=== PATIENT | female | born 1980 | race Caucasian/White ===

== ENCOUNTER 2016-11-14 05:56 | Inpatient (IN) | payer OTHER ==
[2016-11-14] VITALS (36 sets, daily range): BP systolic 93–139; BP diastolic 49–108; PULSE 61–100; RESP 16–20; TEMP 97.6–98.2
[2016-11-14] MEDS ORDERED: AMPICILLIN 2 GM/NS 100 ML IV ONE ×2 (06:00)
[2016-11-14] MEDS ORDERED: OXYTOCIN 30 UNITS/NS 500ML PREMIX IV SCH (06:15)
[2016-11-14] MEDS ORDERED: MINERAL OIL 10 ML VIAL TOP PRN (06:30)
[2016-11-14] MEDS ORDERED: OXYTOCIN 30 UNITS 500ML PREMIX IV ONE (06:30)
[2016-11-14] MEDS ORDERED: LIDOCAINE HCL 1% 50 ML VIAL INFIL PRN (06:30)
[2016-11-14] MEDS ORDERED: LACTATED RINGER'S 1000 ML BOLUS IV PRN (06:30)
[2016-11-14] MEDS ORDERED: NS 1000 ML IV PRN (06:30)
[2016-11-14] MEDS ORDERED: CITRIC ACID-SODIUM CITRATE LIQ 30 ML UDC PO SCH (06:30)
[2016-11-14] MEDS ORDERED: NS 500 ML BOLUS IV PRN (06:30)
[2016-11-14] MEDS ORDERED: LIDOCAINE HCL 1% 50 ML VIAL I-DERMAL PRN (06:30)
[2016-11-14 06:45] LABS: AUTOMATED NEUTROPHIL # 4.9 TH/MM3 (1.8-7.7); BASOPHIL % 0.6 % (0.0-2.0); EOSINOPHIL % 0.7 % (0.0-4.0); HEMATOCRIT 35.9 % (35.0-46.0); HEMO FLAGS DIFF FINAL; LYMPH % 22.2 % (9.0-44.0); LYMPHOCYTE # 1.6 TH/MM3 (1.0-4.8); MEAN CELL VOLUME 90.1 FL (80.0-100.0); MEAN CORPUSCULAR HEMOGLOBIN 31.3 PG (27.0-34.0); MEAN CORPUSCULAR HGB CONC 34.7 % (32.0-36.0); MONO % 8.3 % (0.0-8.0); NEUT % 68.2 % (16.0-70.0); PLATELET COUNT 135 TH/MM3 (150-450); RED BLOOD COUNT 3.98 MIL/MM3 (4.00-5.30); RED CELL DISTRIBUTION WIDTH 12.7 % (11.6-17.2); WHITE BLOOD COUNT 7.1 TH/MM3 (4.0-11.0)
[2016-11-14] MEDS: LACTATED RINGER'S 1000 ML IV SCH (08:00)
[2016-11-14 08:24] LABS: BACTERIA, URINE MOD /hpf; BLOOD, URINE NEG (NEG); COMMENT (UR) CULTURE INDICATED; CULTURE IF INDICATED CULTURE INDICATED; GLUCOSE,URINE NEG (NEG); KETONE, URINE NEG (NEG); MUCUS URINE FEW /lpf (OCC); NITRITE,URINE NEG (NEG); PH, URINE 6.5 (5.0-8.5); SQUAMOUS EPITHELIAL CELL URINE 3 /hpf (0-5); URINE COLOR YELLOW (YELLW/STRAW)
[2016-11-14] MEDS ORDERED: fentaNYL 2MCG-BUPIV 0.125% INJ 100 ML ONE (08:58)
[2016-11-14] MEDS ORDERED: ePHEDrine/NS 50 MG/5 ML SYR ONE (09:15)
[2016-11-14] MEDS ORDERED: fentaNYL 2MCG-BUPIV 0.125% INJ 100 ML EPIDURAL SCH (10:45)
[2016-11-14] MEDS ORDERED: NO SYSTEM NARCOTICS XX PRN (10:45)
[2016-11-14] MEDS ORDERED: ePHEDrine/NS 50 MG/5 ML SYR IV PRN (10:45)
[2016-11-14] MEDS ORDERED: DO NOT ADMINISTER ANTICOAGULANTS XX PRN (10:45)
[2016-11-14] MEDS: AMPICILLIN 1 GM/NS 100 ML IV SCH ×4 (11:54→14:00)
[2016-11-14] MEDS ORDERED: oxyCODONE/ACETAMINOPHEN 5 MG/325 MG TAB PO PRN ×2 (13:30)
[2016-11-14] MEDS ORDERED: ACETAMINOPHEN 325 MG TAB PO PRN (13:30)
[2016-11-14] MEDS ORDERED: ZOLPIDEM TARTRATE 5 MG TAB PO PRN (13:30)
[2016-11-14] MEDS ORDERED: IBUPROFEN 600 MG TAB PO PRN (13:30)
[2016-11-14] MEDS ORDERED: BENZOCAINE 20% TOPICAL SPRAY 60 ML CAN TOPICAL PRN (13:30)
[2016-11-14] MEDS ORDERED: SODIUM CHLORIDE 0.9% FLUSH 5 ML FLUSH IV PRN (13:30)
[2016-11-14] MEDS ORDERED: WITCH HAZEL 50%/GLYCERIN 12.5% 40 PAD JAR TOPICAL PRN (13:30)
[2016-11-14] MEDS ORDERED: ALUMINUM/MAGNESIUM/SIMETH 30 ML CUP PO PRN (13:30)
[2016-11-14] MEDS ORDERED: ONDANSETRON ODT 4 MG TAB PO PRN (13:30)
[2016-11-14] MEDS ORDERED: DOCUSATE SODIUM 50 MG/SENNA 8.6 MG TAB PO PRN (13:30)
[2016-11-14] MEDS ORDERED: DIPHTH/TETANUS/ACEL PERTUSSIS (BOOSTER) 0.5 ML VIAL/PFS IM ONE (16:00)
[2016-11-14] MEDS ORDERED: MEASLES, MUMPS, RUBELLA VACCINE 0.5 ML VIAL SQ ONE (16:00)
[2016-11-14] MEDS: SODIUM CHLORIDE 0.9% FLUSH 5 ML FLUSH IV SCH (21:00)
[2016-11-15] MEDS: LACTATED RINGER'S 1000 ML IV SCH (06:30)
[2016-11-15 09:50] VITALS: BP 120/71; PULSE 68; RESP 20; TEMP 97.9
[2016-11-15] MEDS ORDERED: INFLUENZA VIRUS VACCINE (QUADRIVALENT) 0.5 ML SYR IM ONE (10:00)
--- NOTE | 2016-11-15 10:36 | HHI.OB ---
Subjective Post Day: 1 Remarks doing well Objective Vitals/I&O Vital Signs Date Time Temp Pulse Resp B/P Pulse Ox O2 Delivery O2 Flow Rate FiO2 11/14/16 14:01 85 125/108 11/14/16 13:50 18 11/14/16 13:46 61 115/72 11/14/16 13:33 97.6 18 11/14/16 13:29 66 124/75 11/14/16 13:00 86 139/81 11/14/16 12:31 73 124/74 11/14/16 12:11 18 11/14/16 12:00 74 120/77 11/14/16 11:56 67 122/68 11/14/16 11:54 16 11/14/16 11:30 70 113/65 11/14/16 11:15 73 117/81 11/14/16 11:00 65 110/65 11/14/16 10:58 97.6 16 11/14/16 10:53 78 97/70 11/14/16 10:45 82 11/14/16 10:45 93/55 Objective Remarks GENERAL: Well-nourished, well-developed patient. ABDOMEN/GI: Abdomen soft, non-tender. Fundus: Firm, non-tender at umbilicus. GENITOURINARY: Light to moderate bleeding. EXTREMITIES: No cyanosis or edema, non-tender, without signs of DVT. Medications and IVs Current Medications Medications (Trade) Dose Ordered Sig/Taylor Route Start Time Stop Time Status Last Admin Oxytocin 500 ml @ 0 mls/hr TITRATE IV 11/14/16 06:15 11/14/16 09:08 Lactated Ringer's 1,000 ml @ 125 mls/hr Q8H IV 11/14/16 06:30 11/14/16 08:00 Lactated Ringer's 1,000 ml @ 3,000 mls/hr BOLUS PRN IV 11/14/16 06:30 Sodium Chloride 500 ml @ 1,000 mls/hr BOLUS PRN IV 11/14/16 06:30 (NS 1000 ml Inj) 1,000 ml @ 100 mls/hr Q10H PRN IV 11/14/16 06:30 (fentaNYL INJ) 50 mcg Q1H PRN IV PUSH 11/14/16 06:30 (fentaNYL INJ) 100 mcg Q1H PRN IV PUSH 11/14/16 06:30 Mineral Oil 10 ml 10 ml UNSCH PRN TOP 11/14/16 06:30 (Ampicillin Inj/ NS Inj) 100 ml @ 400 mls/hr Q4H IV 11/14/16 10:00 11/14/16 11:54 Miscellaneous Information No systemic narcotics to be given except... UNSCH PRN XX 11/14/16 10:45 11/15/16 10:44 Miscellaneous Information DO NOT ADMINISTER ANY ANTICOAGUL... UNSCH PRN XX 11/14/16 10:45 11/15/16 10:44 (fentaNYL 2MCG-BUPIV 0.125% INJ) 100 ml @ 0 mls/hr TITRATE EPIDURAL 11/14/16 10:45 (ePHEDrine/NS 50 MG/5 ML SYR) 10 mg UNSCH PRN IV 11/14/16 10:45 11/15/16 10:44 (NS Flush) 2 ml BID IV 11/14/16 21:00 (NS Flush) 2 ml UNSCH PRN IV 11/14/16 13:30 (Tylenol) 650 mg Q4H PRN PO 11/14/16 13:30 (Motrin) 600 mg Q6H PRN PO 11/14/16 13:30 (Percocet 5-325 Mg) 1 tab Q4H PRN PO 11/14/16 13:30 (Percocet 5-325 Mg) 2 tab Q4H PRN PO 11/14/16 13:30 (Americaine 20% Top Spr) 1 spray Q4H PRN TOPICAL 11/14/16 13:30 (Tucks Pads) 1 applic QID PRN TOPICAL 11/14/16 13:30 (Nakia-Colace) 2 tab Q12H PRN PO 11/14/16 13:30 (Ambien) 5 mg HS PRN PO 11/14/16 13:30 (Mag-Al Plus Susp Liq) 15 ml Q8H PRN PO 11/14/16 13:30 (Zofran Odt) 4 mg Q6H PRN PO 11/14/16 13:30 Assessment/Plan Problem List: (1) Spontaneous vaginal delivery Discharge Planning doing well Garcia Spence MD Nov 15, 2016 10:36
--- NOTE | 2016-11-15 10:37 | HHI.DCPOC ---
Discharge Care Plan Diagnosis: (1) Spontaneous vaginal delivery Report Symptoms to Your Doctor -Temperate above 100.5 degrees -Redness, of incision or excessive or foul smelling drainage -Unusual pain or calf pain -Increased vaginal bleeding -Painful or difficulty urinating -Feelings of extreme sadness or anxiety after 2 weeks Goals to Promote Your Health * To prevent worsening of your condition and complications * To maintain your health at the optimal level Directions to Meet Your Goals Take your medications as prescribed Follow your dietary instruction Follow activity as directed Ensure plenty of rest for recovery Drink fluids for hydration Keep your appointments as scheduled Take your immunizations and boosters as scheduled If your symptoms worsen call your PCP, if no PCP go to Urgent Care Center or Emergency Room Smoking is Dangerous to Your Health. Avoid second hand smoke Call the 24-hour crisis hotline for domestic abuse at Garcia Spence MD Nov 15, 2016 10:36
[2016-11-15] MEDS ORDERED: OXYC1TAB63 PO (10:40)
[2016-11-15] MEDS: SODIUM CHLORIDE 0.9% FLUSH 5 ML FLUSH IV SCH (21:00)
[2016-11-15 21:08] VITALS: BP 129/71; PULSE 67; RESP 18; TEMP 98
[2016-11-16 08:08] VITALS: BP 122/77; PULSE 62; RESP 20; TEMP 98.6
--- NOTE | 2016-11-16 09:21 | HHI.OB ---
Subjective Post Day: 2 Remarks doing well dc home Objective Vitals/I&O Vital Signs Date Time Temp Pulse Resp B/P Pulse Ox O2 Delivery O2 Flow Rate FiO2 11/15/16 21:08 98.0 67 18 129/71 11/15/16 09:50 97.9 68 20 120/71 Objective Remarks GENERAL: Well-nourished, well-developed patient. ABDOMEN/GI: Abdomen soft, non-tender. Fundus: Firm, non-tender at umbilicus. GENITOURINARY: Light to moderate bleeding. EXTREMITIES: No cyanosis or edema, non-tender, without signs of DVT. Medications and IVs Current Medications Medications (Trade) Dose Ordered Sig/Taylor Route Start Time Stop Time Status Last Admin Oxytocin 500 ml @ 0 mls/hr TITRATE IV 11/14/16 06:15 11/14/16 09:08 Lactated Ringer's 1,000 ml @ 125 mls/hr Q8H IV 11/14/16 06:30 11/14/16 08:00 Lactated Ringer's 1,000 ml @ 3,000 mls/hr BOLUS PRN IV 11/14/16 06:30 Sodium Chloride 500 ml @ 1,000 mls/hr BOLUS PRN IV 11/14/16 06:30 (NS 1000 ml Inj) 1,000 ml @ 100 mls/hr Q10H PRN IV 11/14/16 06:30 (fentaNYL INJ) 50 mcg Q1H PRN IV PUSH 11/14/16 06:30 (fentaNYL INJ) 100 mcg Q1H PRN IV PUSH 11/14/16 06:30 Mineral Oil 10 ml 10 ml UNSCH PRN TOP 11/14/16 06:30 Ampicillin Sodium 1000 mg/Sodium Chloride 100 ml @ 400 mls/hr Q4H IV 11/14/16 10:00 11/14/16 11:54 (fentaNYL 2MCG-BUPIV 0.125% INJ) 100 ml @ 0 mls/hr TITRATE EPIDURAL 11/14/16 10:45 (NS Flush) 2 ml BID IV 11/14/16 21:00 (NS Flush) 2 ml UNSCH PRN IV 11/14/16 13:30 (Tylenol) 650 mg Q4H PRN PO 11/14/16 13:30 (Motrin) 600 mg Q6H PRN PO 11/14/16 13:30 11/16/16 08:08 (Percocet 5-325 Mg) 1 tab Q4H PRN PO 11/14/16 13:30 (Percocet 5-325 Mg) 2 tab Q4H PRN PO 11/14/16 13:30 (Americaine 20% Top Spr) 1 spray Q4H PRN TOPICAL 11/14/16 13:30 11/15/16 21:08 (Tucks Pads) 1 applic QID PRN TOPICAL 11/14/16 13:30 11/15/16 21:07 (Nakia-Colace) 2 tab Q12H PRN PO 11/14/16 13:30 11/15/16 21:08 (Ambien) 5 mg HS PRN PO 11/14/16 13:30 (Mag-Al Plus Susp Liq) 15 ml Q8H PRN PO 11/14/16 13:30 (Zofran Odt) 4 mg Q6H PRN PO 11/14/16 13:30 Assessment/Plan Problem List: (1) Spontaneous vaginal delivery Discharge Planning doing well Garcia Spence MD Nov 16, 2016 09:21
--- NOTE | 2016-11-16 09:24 | HHI.DS ---
Admission Date Nov 14, 2016 at 05:56 Discharge Date: Nov 16, 2016 Admitting Diagnosis Diagnosis: (1) Spontaneous vaginal delivery Diagnosis: Principal Vaginal Delivery: Normal Brief History patient came in labor and delivered vaginally Hospital Course dc home PD #2 Pt Condition on Discharge: Good Discharge Disposition: Discharge Home Discharge Instructions Diet Instructions: As Tolerated, No Restrictions Activities You Can Perform: Pelvic Rest Follow up Referrals: LAWYERS - 2 Weeks @ [facility] with Dee Castrejon MD New Medications: Oxycodone-Acetaminophen (Oxycodone-Acetaminophen) 5-325 mg Tab 1 TAB PO Q4H PRN PAIN SCALE 3 TO 5 #20 TAB Garcia Spence MD Nov 16, 2016 09:24
== END 2016-11-16 13:46 | disposition home or self-care (01) | DRG 775 ==
LOC: H2EB 05:56 → H1EA 14:50
PROVIDERS: ADMIT Obstetrics & Gynecology; ATTEND Obstetrics & Gynecology
PROC: 10E0XZZ Delivery of Products of Conception, External Approach (ICD-10-PCS; principal; 2016-11-14)
PROC: 3E0S3CZ (ICD-10-PCS; 2016-11-14)
PROC: 00HU33Z Insertion of Infusion Device into Spinal Canal, Percutaneous Approach (ICD-10-PCS; 2016-11-14)
PROC: 3E033VJ Introduction of Other Hormone into Peripheral Vein, Percutaneous Approach (ICD-10-PCS; 2016-11-14)
DX: O75.89 Other specified complications of labor and delivery (principal); O09.529 Supervision of elderly multigravida, unspecified trimester; Z3A.39 39 weeks gestation of pregnancy; Z37.0 Single live birth; Z23 Encounter for immunization
CPT/HCPCS: 59025; 81001; 85025; 86850; 86900; 86901; 87086; 90686; 90715; J0290; J2590; J7120; Q2038